=== PATIENT | male | born 1985 | race Caucasian/White ===

== ENCOUNTER 2024-12-30 11:36 | Day surgery (SDC) | payer BC ==
--- NOTE | 2024-12-30 12:25 | RAD REPORT ---
EXAM: Chest Pa And Lat (2 Views) HISTORY: 39 years Male PREOP COMPARISON: None. FINDINGS: LUNGS/PLEURA: The lungs are clear. No pleural effusions or pneumothorax. No pulmonary edema. MEDIASTINUM: The mediastinal silhouette is within normal limits CARDIAC: The cardiac silhouette is within normal limits. UPPER ABDOMEN: No significant abnormality. BONES: No acute abnormality. LINES/TUBES/OTHER: N/A IMPRESSION: No evidence of acute cardiopulmonary disease.
[2024-12-30] MEDS: Ringers Lactate 1,000 ML IV ONE (12:40)
[2024-12-30] MEDS ORDERED: propofoL 200 MG/20 ML VIAL IV ONE ×3 (14:19→15:35)
[2024-12-30] MEDS ORDERED: LIDOCAINE 2% MPF 5 ML VIAL ONE ×2 (15:15→15:35)
[2024-12-30] MEDS ORDERED: ONDANSETRON 4 MG/2 ML VIAL ONE ×2 (15:15→15:35)
[2024-12-30] MEDS ORDERED: MIDAZOLAM HCL 2 MG/2 ML INJ ONE (15:35)
[2024-12-30] MEDS ORDERED: FENTANYL CITR 100 MCG/2 ML ONE (15:35)
[2024-12-30] MEDS: CEFAZOLIN SODIUM 1 GM/VIAL ONE (16:00)
--- NOTE | 2024-12-30 16:39 | P.BOP ---
Preoperative diagnosis: infected back subQ tender mass Postoperative diagnosis: same Primary procedure: Excisional biopsy of infected back subQ tender mass 5x5cm Estimated blood loss: <10cc Specimen: mass Findings: as above Anesthesia: General Complications: None Transferred to: Recovery Room Condition: Good
[2024-12-30 17:26] VITALS: BP 152/91; TEMP 97.6; O2SAT 100
--- NOTE | 2025-01-03 12:55 | EKG ---
Test Date: 2024-12-30 Test Time: 12:55:15 Telegraph Operator: MEASUREMENT RESULTS: Intervals: Rate: 81 UT: 156 QRSD: 110 QT: 388 QTc: 450 [place]: P: 48 UT: 156 QRS: 58 T: 77 INTERPRETIVE STATEMENTS: Sinus rhythm with occasional premature ventricular complexes Otherwise normal ECG Compared to ECG 01/13/2003 09:09:00 Ventricular premature complex(es) now present Electronically Signed On 01-03-25 12:47:12 [employer]SEM[employer]ER by Jasbir Lin
--- NOTE | 2025-01-04 21:59 | OP ---
Date of Procedure: 01/04/2025 Surgeon: Curt Scott MD Preoperative Diagnosis: Infected back subcutaneous tender mass. Postoperative Diagnosis: Infected back subcutaneous tender mass. Procedure: Excisional biopsy of infected vacuum drier tender subcutaneous mass, 5 x 5 cm. Estimated Blood Loss: Less than 10 cc. Specimens: Mass. Findings: As above. Anesthesia: General plus local. Indications: This is the case of a 39-year-old patient, who comes with infected subcutaneous mass dr makayla galvan. He had an I and D done before. It is still I and D closed, that was done in the ER, and then once again draining pus overnight. The benefits, alternatives, and risks of excisional biopsy of infected subcutaneous mass fully explained, which include, but not limited to infection, bleeding, damage to adjacent structures, anesthesia complication, recurrence, AR, and even . He also und erstands this may not relieve any symptoms. He might need more than one surgical intervention. He u nderstood and signed a consent. Description Of Procedure: The area of concern was marked by me and the patient in the holding room. The patient preferred the area to be closed, but we explained to him due to the infection, we might have to do some wound care, may be just wet-to-dry to open wounds, may be that we have a drain in daryl t area, may be that is partially packed. He can take anything to diminish the chance of the open wou nd since he is very busy at work. He understood and signed a consent. Once again, the area was tiffanie ed by me and the patient in the holding room. The patient was brought to the operating room and plac ed in supine position. Anesthesia was induced without complication. The patient was placed in later al decubitus position with proper protection. A time-out was called. Local anesthesia was applied. Then, after that, we proceeded to make a wedge incision on the skin. The incision was carried down all the way down to subcutaneous tissue. We noticed the mass. We noticed the infection. The area w as profusely irrigated until only clear water comes out. Hemostasis was obtained. In order for me t o trying to adapt to him, I proceeded then to not to close the wound completely, but we approximated the area in [id number] fashion, left some areas in between, and we also put a [place] drain in t hat area to allow this to heal slowly by secondary intention and also drain from inside with the help of a [place] drain. At least, we approximated some of the wound and cut the time of healing. I by any chance in the next few days, we did not see any improvement in healing, will allow me to remove t he stitches. We have a plan we cover the area with sterile dressings. Local anesthesia was applied. The patient was sent to recovery in stable condition. HUNTER/JOHANA Voice ID: [id number] Report ID: [id number]
--- NOTE | 2025-01-04 22:04 | DS ---
Date of Discharge: 12/30/2024 Diagnosis: Infected back subcutaneous tender mass. Procedure: Excisional biopsy of infected back subcutaneous mass, 5 x 5 cm. Condition: Stable. Disposition: Home. Activity: As tolerated. No heavy lifting. Discharge Instructions: Follow up in my office in 1 week. Call for appointment at [phone]. Keep area dry, come back to my office to do dressing changes, so we can explain to him. He was advised t o bring a family member, so we can explain to them what to do. In the meantime, continue the antibio tics. Cultures were sent. HUNTER/JOHANA Voice ID: [id number] Report ID: [id number]
== END 2024-12-30 17:37 | disposition home or self-care (01) ==
LOC: OR 11:36
PROVIDERS: ATTEND Surgery
PROC: 0JB70ZZ Excision of Back Subcutaneous Tissue and Fascia, Open Approach (ICD-10-PCS; principal; 2024-12-30 15:00)
DX: L72.0 Epidermal cyst (principal); L08.9 Local infection of the skin and subcutaneous tissue, unspecified
CPT/HCPCS: 11406; 93005; 87070; 87205; 88304; 87075; 71046; J2704; J2003; J2250; J3010; J2405; J7120; J0690